=== PATIENT | male | born 1995 ===

== ENCOUNTER 2019-04-25 16:26 | Emergency (ER) | payer MEDICAID, OTHER ==
[~2019-04-25] VITALS: Ht 170.2 cm; Wt 108.0 kg
--- NOTE | 2019-04-25 16:50 | NUR ---
THIS IS A 24 YO MALE BIBA FROM URGENT CARE. PATIENT HAD AN ANAPHYLACTIC REACTION TO A PEANUT PRODUCT WITH WHEEZES AND URTICARIA, SWOLLEN THROAT, SWELLING TO FACE AND NECK, AND HIVES IN LOWER EXTREMITIES. URGENT CARE GAVE 50MG BENEDRYL IM AND 0.3MG EPI IM AND SENT PATIENT HERE FOR OBSERVATION. PATIENT WAS STABLE DURING TRANSPORT WITH OCCASIONAL LOW SPO2 INTO 88%. [facility] PLACED PATIENT ON 1L NC, AND SPO2 WAS 94%. PATIENT CURRENTLY RESTING ON GURNEY, PLACED ON CONTINUOUS SPO2 RA AT 96%. PATIENT DOES HAVE MILD EXPIRATORY WHEEZES IN MAIN BRONCHI AREA, AND A DRY COUGH. VSS, NAD, DENIES FURTHER NEEDS AT THIS TIME.
--- NOTE | 2019-04-25 17:17 | NUR ---
PATIENT STABLE, STATES THAT HIS SYMPTOMS ARE FEELING BETTER, DRY COUGH STILL PRESENT. ON CONTINUOUS SPO2 AT 98%. DENIES FURTHER NEEDS AT THIS TIME.
[2019-04-25 17:59] VITALS: BP 129/87
--- NOTE | 2019-04-25 18:00 | NUR ---
PATIENT REAMINS STABLE, NAD, VSS, DRY COUGH HAS SUBSIDED. PATIENT DENIES NEEDS AT THIS TIME.
--- NOTE | 2019-04-25 18:22 | NUR ---
Patient/Caregiver given discharge instructions and they have confirmed that they understand the instructions. Patient ambulatory with steady gait.
== END 2019-04-25 18:22 | disposition home or self-care (01) ==
LOC: ED 16:54
DX: T78.01XA Anaphylactic reaction due to peanuts, initial encounter (principal)
CPT/HCPCS: 99283

== ENCOUNTER 2019-11-15 19:31 | Emergency (ER) | payer MEDICAID ==
[~2019-11-15] VITALS: Ht 170.2 cm; Wt 107.1 kg
[2019-11-15] MEDS ORDERED: FAMOTIDINE 20 MG/2 ML ONE ×2 (19:45→19:47)
[2019-11-15] MEDS ORDERED: DIPHENHYDRAMINE 50 MG/ML, 1ML ONE (19:45)
[2019-11-15] MEDS ORDERED: methylPREDNISolone SOD SUCC 40 MG/ML ONE (19:47)
[2019-11-15] MEDS ORDERED: methylPREDNISolone SOD SUCC 125 MG/2 ML ONE (19:53)
[2019-11-15] MEDS ORDERED: methylPREDNISolone SOD SUCC 125 MG/2 ML IVPush ONE (20:00)
[2019-11-15] MEDS ORDERED: FAMOTIDINE 20 MG/2 ML IVPush ONE (20:00)
[2019-11-15] MEDS ORDERED: DIPHENHYDRAMINE 50 MG/ML, 1ML IVPush ONE (20:00)
[2019-11-15 20:29] VITALS: BP 119/56
--- NOTE | 2019-11-15 21:47 | NUR ---
Patient/Caregiver given discharge instructions and they have confirmed that they understand the instructions. Patient ambulatory with steady gait.
== END 2019-11-15 21:48 | disposition home or self-care (01) ==
LOC: ED 20:58
DX: L50.0 Allergic urticaria (principal); T78.1XXA Other adverse food reactions, not elsewhere classified, initial encounter; R00.0 Tachycardia, unspecified
CPT/HCPCS: 96374; 96375; 99284; J1200; J2930; J3490